=== PATIENT | male | born 1980 | race Caucasian/White ===

== ENCOUNTER 2024-08-03 09:15 | Outpatient (CLI) | payer BC, SELFPAY ==
--- NOTE | ~2024-08-03 | US_ITS ---
Testicular ultrasound with doppler. Indication: Scrotal mass. Technique: Real-time sonography the scrotum was performed. Color flow Doppler and Doppler spectral an alysis were performed. Findings: The testes are homogeneous in echotexture bilaterally. There is no evidence of an intrates ticular mass. The right testis measures 4.7 x 2.3 x 3.1 cm and the left 4.5 x 2.1 x 3.0 cm. There is color-flow seen to both testes. Arterial and venous spectral waveforms are seen in both testes. There is no sonographic evidence of torsion. There is a 2.0 x 1.5 x 1.7 cm cystic mass with minimal strategy intern al debris just lateral to the right testis. Impression: 2.0 x 1.5 x 1.7 cm cystic mass with minimal internal debris just lateral to the right testis. This mo st likely represents an epididymal cyst or spermatocele. Reviewed, dictated and finalized at [facility] [place]. Impression: 2.0 x 1.5 x 1.7 cm cystic mass with minimal internal debris just lateral to the right testis. This most likely represents an epididymal cyst or spermatocele.
== END 2024-08-03 09:16 | disposition home or self-care (01) ==
DX: N50.89 Other specified disorders of the male genital organs (principal)
CPT/HCPCS: 76870; 93976